=== PATIENT | female | born 1990 | race Caucasian/White ===

== ENCOUNTER 2018-12-07 06:49 | Inpatient (IN) | payer BC, MEDICAID ==
[2018-12-07] MEDS ORDERED: Misoprostol 100 MCG Tab VAG ONE (07:09)
[2018-12-07] MEDS ORDERED: Calcium Carbonate 500 MG Tab.Chew PO PRN (07:09)
--- NOTE | 2018-12-07 08:22 | PCM.PNLD ---
Labor Progress Note - VS & Meds Active Medications: Current Medications Calcium Carbonate/Glycine (Tums) 1,000 mg PO Q2H PRN PRN Reason: Indigestion Last Admin: 12/07/18 08:04 Dose: 1,000 mg Sodium Chloride (Saline Flush) 10 ml FLUSH ASDIRECTED PRN PRN Reason: Keep Vein Open Discontinued Medications Misoprostol (Cytotec) 25 mcg VAG ONETIME ONE Stop: 12/07/18 07:10 Last Admin: 12/07/18 08:11 Dose: 25 mcg - Uterine Contractions Uterine Resting Tone: Soft - Monitoring Monitor Mode: External Ultrasound Heart Rate (FHR) Variability: Moderate (6-25 bmp) Accelerations: Present, 15x15 Decelerations: None Strip Review: Category I - Vaginal Exam Station: -2 Cervical Position: Posterior - Labor Progress (Free Text) Labor Progress: Love is a 28 yo F at 39 w 2 d who was admitted today for induction of labor. She has had a routine and reports feeling well today. She is feeling some contractions this morning. Baby is moving and she has not had any vaginal bleeding or leakage of fluids. We will start her on Cytotec 25mg q 4 hours this AM. If she progresses we will start pitocin per protocol. Epidural/pain control per patient preference.
[2018-12-07] MEDS ORDERED: Misoprostol 25 MCG (1/4 of 100 MCG) Tab VAG ONE (12:14)
--- NOTE | 2018-12-07 12:57 | PCM.DEL ---
L & D Note - General Info Date of Service: 12/07/18 - Delivery Note Labor: Augmented by Oxytocin - General Info Date of Service: 12/07/18 Functional Status: Reports: Pain Controlled (Patient is doing well. She is starting to feel contractions that are more forceful. ) - Patient Data Vitals - Most Recent: Last Vital Signs Temp 98 F 12/07/18 07:20 Pulse 85 12/07/18 10:20 Resp 18 12/07/18 07:20 BP 117/79 12/07/18 07:20 Pulse Ox 100 12/07/18 07:30 Weight - Most Recent: 147 lb Med Orders - Current: Current Medications Calcium Carbonate/Glycine (Tums) 1,000 mg PO Q2H PRN PRN Reason: Indigestion Last Admin: 12/07/18 08:04 Dose: 1,000 mg Measles/Mumps/Rubella Vaccine Live (M-M-R Ii Vaccine) 0.5 ml SUBCUT .ONCE ONE Stop: 12/09/18 10:01 Sodium Chloride (Saline Flush) 10 ml FLUSH ASDIRECTED PRN PRN Reason: Keep Vein Open Discontinued Medications Misoprostol (Cytotec) 25 mcg VAG ONETIME ONE Stop: 12/07/18 07:10 Last Admin: 12/07/18 08:11 Dose: 25 mcg Misoprostol (Cytotec) 25 mcg VAG ONETIME ONE Stop: 12/07/18 12:15 - Problem List & Annotations (1) Elective induction of labor planned SNOMED Code(s): 024929147 Code(s): RZB1431 - Status: Acute Current Visit: Yes - Problem List Review Problem List Initiated/Reviewed/Updated: Yes - My Orders Last 24 Hours: My Active Orders 12/07/18 07:09 Patient Status [ADT] Routine Communication Order [RC] ASDIRECTED Communication Order [RC] ASDIRECTED Communication Order [RC] ASDIRECTED Communication Order [RC] ASDIRECTED Communication Order [RC] ASDIRECTED Non Stress Test [RC] Click to Edit Notify Provider [RC] PRN Notify Provider [RC] PRN Notify Provider [RC] STAT Vital Signs [RC] PER UNIT ROUTINE Calcium Carbonate [Tums] 1,000 mg PO Q2H PRN Sodium Chloride 0.9% [Saline Flush] 10 ml FLUSH ASDIRECTED PRN Electronic Heart Tones Ext w TOCO [WOMSER] Per Unit Routine Peripheral IV Insertion Adult [OM.PC] Urgent Saline Lock Insert [OM.PC] Routine Resuscitation Status Routine 12/07/18 07:11 Notify Provider Vital Signs [RC] PRN 12/07/18 07:14 Communication Order [RC] ASDIRECTED 12/07/18 11:06 Vaccines to be Administered [RC] PER UNIT ROUTINE 12/09/18 10:00 Measles, Mumps & Rubella [M-M-R II Vaccine] 0.5 ml SUBCUT .ONCE ONE - Assessment Assessment:: Induction of labor - Plan Plan:: Patient has made good cervical change. We will start her on pitocin per protocol. She may have epidural if desired.
[2018-12-07] MEDS: Sodium Chloride 0.9% 10 ML Syringe FLUSH PRN ×2 (13:25→23:30)
[2018-12-07] MEDS: Lactated Ringers 1,000 ML IV SCH ×2 (13:29→18:37)
[2018-12-07] MEDS ORDERED: LIDOCAINE 1.5% ONE (17:20)
[2018-12-07] MEDS ORDERED: Ropivacaine 200 ML EPIDUR ONE (17:20)
--- NOTE | 2018-12-07 17:37 | PCM.PNLD ---
Labor Progress Note - VS & Meds Vital Signs: Last Vital Signs Temp 98 F 12/07/18 14:20 Pulse 80 12/07/18 15:23 Resp 18 12/07/18 07:20 BP 103/61 12/07/18 14:20 Pulse Ox 100 12/07/18 07:30 Active Medications: Current Medications Calcium Carbonate/Glycine (Tums) 1,000 mg PO Q2H PRN PRN Reason: Indigestion Last Admin: 12/07/18 08:04 Dose: 1,000 mg Oxytocin/Sodium Chloride (Pitocin In Ns 20 Units/1,000 Ml) 20 unit in 1,000 mls @ 6 mls/hr IV TITRATE JEWELL; Protocol Last Titration: 12/07/18 15:15 Dose: 6 munits/min, 18 mls/hr Lactated Ringer's (Ringers, Lactated) 1,000 mls @ 125 mls/hr IV ASDIRECTED JEWELL Last Admin: 12/07/18 13:29 Dose: 125 mls/hr Measles/Mumps/Rubella Vaccine Live (M-M-R Ii Vaccine) 0.5 ml SUBCUT .ONCE ONE Stop: 12/09/18 10:01 Sodium Chloride (Saline Flush) 10 ml FLUSH ASDIRECTED PRN PRN Reason: Keep Vein Open Last Admin: 12/07/18 13:25 Dose: 10 ml Discontinued Medications Misoprostol (Cytotec) 25 mcg VAG ONETIME ONE Stop: 12/07/18 07:10 Last Admin: 12/07/18 08:11 Dose: 25 mcg Misoprostol (Cytotec) 25 mcg VAG ONETIME ONE Stop: 12/07/18 12:15 Last Admin: 12/07/18 12:58 Dose: Not Given - Uterine Contractions Uterine Monitoring Mode: External [place] Contraction Frequency (min): 2-5 Contraction Duration (sec): 60-90 Contraction Intensity: Mild to Moderate Uterine Resting Tone: Soft - Monitoring Monitor Mode: External Ultrasound Heart Rate (FHR) Variability: Moderate (6-25 bmp) Accelerations: Present, 15x15 Decelerations: None Strip Review: Category I - Vaginal Exam Dilation (cm): 1-2 Effacement (Percent): 80 Station: -2 Cervical Position: Midposition Sterile Vaginal Exam Performed By: Shi [place]eland Vaginal Exam Comment: examined by Dr. Nargis Spicer - Labor Progress (Free Text) Labor Progress: Successful AROM with return of clear fluid. Patient recieved epidural with no complications and has excellent pain control. Will continue pitocin per protocol. Expecting normal spontaneous vaginal delivery. Category I tracing.
[2018-12-07] MEDS ORDERED: Ondansetron 4 MG/2 ML SDV IVPUSH PRN (19:43)
[2018-12-07] MEDS ORDERED: Promethazine 6.25 MG in Sodium Chloride 0.9% 50 ML IV PRN (19:43)
[2018-12-07] MEDS ORDERED: ePHEDrine 50 MG/ML SDV IVPUSH PRN (19:43)
[2018-12-07] MEDS ORDERED: Lactated Ringers 500 ML IV SCH (19:45)
--- NOTE | 2018-12-07 22:10 | PCM.DEL ---
L & D Note - General Info Date of Service: 12/07/18 - Delivery Note Labor: Spontaneous, Augmented by Oxytocin Cervical Ripening Method: Prostaglandin E2 Delivery Outcome: Livebirth Delivery Method: Spontaneous Vaginal Delivery-Single Infant Delivery Mode: Spontaneous Presentation: Left Occiput Anterior (EDER) Nuchal Cord: Present Anesthesia Type: Epidural Amniotic Fluid Description: Clear Episiotomy Type: None Laceration: None Placenta: Intact, Spontaneous Cord: 3 Vessels Resuscitation Needed: No [place]: Suctioned, Bulb Syringe (Spontaneous delivery of a healthy baby boy weighing in 7lbs and 2.4ounces by spontaenous vaginal delivery. No lacerations and estimated blood loss at 50cc. ) - General Info Date of Service: 12/07/18 - Patient Data Vitals - Most Recent: Last Vital Signs Temp 97.4 F 12/07/18 17:00 Pulse 97 12/07/18 20:30 Resp 18 12/07/18 20:30 BP 107/73 12/07/18 20:30 Pulse Ox 100 12/07/18 20:30 Weight - Most Recent: 147 lb I&O - Last 24 Hours: Intake & Output 12/07/18 12/07/18 12/07/18 06:59 14:59 22:59 Intake Total 1500 Output Total 800 Balance 700 Med Orders - Current: Current Medications Calcium Carbonate/Glycine (Tums) 1,000 mg PO Q2H PRN PRN Reason: Indigestion Last Admin: 12/07/18 08:04 Dose: 1,000 mg Ephedrine Sulfate (Ephedrine Sulfate) 5 mg IVPUSH ASDIRECTED PRN PRN Reason: Hypotension Oxytocin/Sodium Chloride (Pitocin In Ns 20 Units/1,000 Ml) 20 unit in 1,000 mls @ 6 mls/hr IV TITRATE JEWELL; Protocol Last Titration: 12/07/18 17:50 Dose: 6 munits/min, 18 mls/hr Lactated Ringer's (Ringers, Lactated) 1,000 mls @ 125 mls/hr IV ASDIRECTED JEWELL Last Admin: 12/07/18 18:37 Dose: 125 mls/hr Lactated Ringer's (Ringers, Lactated) 1,000 mls @ 999 mls/hr IV BOLUS JEWELL Promethazine HCl 6.25 mg/ (Sodium Chloride) 50.25 mls @ 200 mls/hr IV Q4H PRN PRN Reason: Nausea/Vomiting Measles/Mumps/Rubella Vaccine Live (M-M-R Ii Vaccine) 0.5 ml SUBCUT .ONCE ONE Stop: 12/09/18 10:01 Ondansetron HCl (Zofran) 4 mg IVPUSH Q6H PRN PRN Reason: Nausea/Vomiting Sodium Chloride (Saline Flush) 10 ml FLUSH ASDIRECTED PRN PRN Reason: Keep Vein Open Last Admin: 12/07/18 13:25 Dose: 10 ml Discontinued Medications Misoprostol (Cytotec) 25 mcg VAG ONETIME ONE Stop: 12/07/18 07:10 Last Admin: 12/07/18 08:11 Dose: 25 mcg Misoprostol (Cytotec) 25 mcg VAG ONETIME ONE Stop: 12/07/18 12:15 Last Admin: 12/07/18 12:58 Dose: Not Given - Problem List & Annotations (1) Vaginal delivery SNOMED Code(s): 477246281 Code(s): O80 - ENCOUNTER FOR FULL-TERM UNCOMPLICATED DELIVERY Status: Acute Current Visit: Yes (2) Elective induction of labor planned SNOMED Code(s): 821724772 Code(s): JGO4237 - Status: Acute Current Visit: Yes (3) Vaginal delivery SNOMED Code(s): 395283428 Code(s): O80 - ENCOUNTER FOR FULL-TERM UNCOMPLICATED DELIVERY Status: Acute Current Visit: Yes (4) Vaginal delivery SNOMED Code(s): 108261905 Code(s): O80 - ENCOUNTER FOR FULL-TERM UNCOMPLICATED DELIVERY Status: Acute Current Visit: Yes - Problem List Review Problem List Initiated/Reviewed/Updated: Yes - My Orders Last 24 Hours: My Active Orders 12/07/18 07:09 Communication Order [RC] ASDIRECTED Non Stress Test [RC] Click to Edit Notify Provider [RC] PRN Notify Provider [RC] PRN Notify Provider [RC] STAT Vital Signs [RC] PER UNIT ROUTINE Calcium Carbonate [Tums] 1,000 mg PO Q2H PRN Sodium Chloride 0.9% [Saline Flush] 10 ml FLUSH ASDIRECTED PRN Electronic Heart Tones Ext w TOCO [WOMSER] Per Unit Routine Peripheral IV Insertion Adult [OM.PC] Urgent Saline Lock Insert [OM.PC] Routine Resuscitation Status Routine 12/07/18 07:11 Notify Provider Vital Signs [RC] PRN 12/07/18 11:06 Vaccines to be Administered [RC] PER UNIT ROUTINE 12/07/18 13:00 Lactated Ringers [Ringers, Lactated] 1,000 ml IV ASDIRECTED Oxytocin/Normal Saline [Pitocin in NS 20 Units/1,000 ML] 20 unit in 1,000 ml IV TITRATE 12/07/18 17:30 Admission Status [Patient Status] [ADT] Routine 12/09/18 10:00 Measles, Mumps & Rubella [M-M-R II Vaccine] 0.5 ml SUBCUT .ONCE ONE - Assessment Assessment:: Normal spontaneous vaginal delivery - Plan Plan:: Routine post cares. Patient plans to breast feed. Pain well controlled.
[2018-12-07] MEDS ORDERED: Acetaminophen/Codeine 300-30 MG Tab PO PRN (22:12)
[2018-12-07] MEDS: Ibuprofen 800 MG Tab PO SCH (22:41)
[2018-12-08] MEDS: Ibuprofen 800 MG Tab PO SCH ×3 (07:00→22:57)
--- NOTE | 2018-12-08 07:56 | PCM.PNPP ---
<Nargis Spicer - Last Filed: 12/08/18 07:49> - General Info Date of Service: 12/08/18 Subjective Update: Patient is doing very well. She has excellent pain control and no vaginal bleeding. She has been up and out of bed and urinating without issue. She does have some concern about breast feeding. Functional Status: Reports: Pain Controlled Pain Score: 1 - Review of Systems General: Reports: No Symptoms HEENT: Reports: No Symptoms Pulmonary: Reports: No Symptoms Gastrointestinal: Reports: No Symptoms Genitourinary: Reports: No Symptoms Musculoskeletal: Reports: No Symptoms Skin: Reports: No Symptoms Neurological: Reports: No Symptoms Psychiatric: Reports: No Symptoms - Patient Data Vital Signs - Most Recent: Last Vital Signs Temp 37.0 C 12/08/18 00:00 Pulse 100 12/08/18 01:30 Resp 18 12/08/18 01:30 BP 107/73 12/08/18 01:30 Pulse Ox 100 12/07/18 21:00 Weight - Most Recent: 147 lb I&O - Last 24 Hours: Intake & Output 12/07/18 12/08/18 12/08/18 22:59 06:59 14:59 Intake Total 3146 Output Total 1300 650 Balance 1846 -650 Lab Results - Last 24 Hours: Laboratory Results - last 24 hr 12/08/18 Range/Units 06:55 Hgb 10.1 L (11.5-15.5) g/dL Hct 30.3 (30.0-51.3) % Med Orders - Current: Current Medications Acetaminophen/Codeine Phosphate (Tylenol With Codeine No.3 300mg/30mg) 1 tab PO Q4H PRN PRN Reason: Pain (moderate 4-6) Last Admin: 12/08/18 05:33 Dose: 1 tab Calcium Carbonate/Glycine (Tums) 1,000 mg PO Q2H PRN PRN Reason: Indigestion Last Admin: 12/07/18 08:04 Dose: 1,000 mg Ibuprofen (Motrin) 800 mg PO Q8H JEWELL Last Admin: 12/08/18 07:00 Dose: 800 mg Measles/Mumps/Rubella Vaccine Live (M-M-R Ii Vaccine) 0.5 ml SUBCUT .ONCE ONE Stop: 12/09/18 10:01 Multivit/Folic Acid/Iron (-U) 1 each PO DAILY JEWELL Sodium Chloride (Saline Flush) 10 ml FLUSH ASDIRECTED PRN PRN Reason: Keep Vein Open Last Admin: 12/07/18 23:30 Dose: 10 ml Discontinued Medications Ephedrine Sulfate (Ephedrine Sulfate) 5 mg IVPUSH ASDIRECTED PRN PRN Reason: Hypotension Oxytocin/Sodium Chloride (Pitocin In Ns 20 Units/1,000 Ml) 20 unit in 1,000 mls @ 6 mls/hr IV TITRATE JEWELL; Protocol Last Titration: 12/07/18 17:50 Dose: 6 munits/min, 18 mls/hr Lactated Ringer's (Ringers, Lactated) 1,000 mls @ 125 mls/hr IV ASDIRECTED JEWELL Last Admin: 12/07/18 18:37 Dose: 125 mls/hr Lactated Ringer's (Ringers, Lactated) 1,000 mls @ 999 mls/hr IV BOLUS JEWELL Promethazine HCl 6.25 mg/ (Sodium Chloride) 50.25 mls @ 200 mls/hr IV Q4H PRN PRN Reason: Nausea/Vomiting Misoprostol (Cytotec) 25 mcg VAG ONETIME ONE Stop: 12/07/18 07:10 Last Admin: 12/07/18 08:11 Dose: 25 mcg Misoprostol (Cytotec) 25 mcg VAG ONETIME ONE Stop: 12/07/18 12:15 Last Admin: 12/07/18 12:58 Dose: Not Given Ondansetron HCl (Zofran) 4 mg IVPUSH Q6H PRN PRN Reason: Nausea/Vomiting - Infant Interaction Support Person: - Recovery Exam Fundal Tone: Firm Fundal Level: At Umbilicus Fundal Placement: Midline Lochia Amount: Moderate Lochia Color: Rubra/Red Perineum Description: Intact, Minimal Bruising/Swelling Episiotomy/Laceration: None Bladder Status: Voiding - Problem List & Annotations (1) care and examination SNOMED Code(s): 441599239, 484857458 Code(s): Z39.2 - ENCOUNTER FOR ROUTINE FOLLOW-UP Status: Acute (2) care following vaginal delivery SNOMED Code(s): 959726795, 662611723 Code(s): Z39.2 - ENCOUNTER FOR ROUTINE FOLLOW-UP Status: Acute (3) care following vaginal delivery SNOMED Code(s): 927850990, 906749957 Code(s): Z39.2 - ENCOUNTER FOR ROUTINE FOLLOW-UP Status: Acute - Assessment Assessment:: Normal spontaneous vaginal delivery Post Day #1 - Plan Plan:: Continue routine post cares. Patient encouraged to continue and work on latching. Her hemoglobin is within normal limits. All questions were answered. Plan for discharge tomorrow. <Ayad Ramos - Last Filed: 12/10/18 12:00> - Patient Data Vital Signs - Most Recent: Last Vital Signs Temp 98.5 F 12/08/18 16:00 Pulse 94 12/08/18 16:00 Resp 17 12/08/18 16:00 BP 96/64 12/08/18 16:00 Pulse Ox 99 12/08/18 16:00 Med Orders - Current: Current Medications Acetaminophen/Codeine Phosphate (Tylenol With Codeine No.3 300mg/30mg) 1 tab PO Q4H PRN PRN Reason: Pain (moderate 4-6) Last Admin: 12/08/18 05:33 Dose: 1 tab Calcium Carbonate/Glycine (Tums) 1,000 mg PO Q2H PRN PRN Reason: Indigestion Last Admin: 12/07/18 08:04 Dose: 1,000 mg Docusate Sodium (Colace) 100 mg PO DAILY PRN PRN Reason: Constipation Last Admin: 12/08/18 09:29 Dose: 100 mg Ibuprofen (Motrin) 800 mg PO Q8H JEWELL Last Admin: 12/09/18 06:15 Dose: 800 mg Measles/Mumps/Rubella Vaccine Live (M-M-R Ii Vaccine) 0.5 ml SUBCUT .ONCE ONE Stop: 12/09/18 10:01 Multivit/Folic Acid/Iron (-U) 1 each PO DAILY JEWELL Last Admin: 12/08/18 09:03 Dose: 1 each Sodium Chloride (Saline Flush) 10 ml FLUSH ASDIRECTED PRN PRN Reason: Keep Vein Open Last Admin: 12/07/18 23:30 Dose: 10 ml Discontinued Medications Ephedrine Sulfate (Ephedrine Sulfate) 5 mg IVPUSH ASDIRECTED PRN PRN Reason: Hypotension Oxytocin/Sodium Chloride (Pitocin In Ns 20 Units/1,000 Ml) 20 unit in 1,000 mls @ 6 mls/hr IV TITRATE JEWELL; Protocol Last Titration: 12/07/18 17:50 Dose: 6 munits/min, 18 mls/hr Lactated Ringer's (Ringers, Lactated) 1,000 mls @ 125 mls/hr IV ASDIRECTED JEWELL Last Admin: 12/07/18 18:37 Dose: 125 mls/hr Lactated Ringer's (Ringers, Lactated) 1,000 mls @ 999 mls/hr IV BOLUS JEWELL Promethazine HCl 6.25 mg/ (Sodium Chloride) 50.25 mls @ 200 mls/hr IV Q4H PRN PRN Reason: Nausea/Vomiting Misoprostol (Cytotec) 25 mcg VAG ONETIME ONE Stop: 12/07/18 07:10 Last Admin: 12/07/18 08:11 Dose: 25 mcg Misoprostol (Cytotec) 25 mcg VAG ONETIME ONE Stop: 12/07/18 12:15 Last Admin: 12/07/18 12:58 Dose: Not Given Ondansetron HCl (Zofran) 4 mg IVPUSH Q6H PRN PRN Reason: Nausea/Vomiting - Problem List & Annotations (1) Vaginal delivery SNOMED Code(s): 397304150 Code(s): O80 - ENCOUNTER FOR FULL-TERM UNCOMPLICATED DELIVERY Status: Acute (2) Elective induction of labor planned SNOMED Code(s): 406813312 Code(s): TZD6111 - Status: Acute (3) Vaginal delivery SNOMED Code(s): 052471984 Code(s): O80 - ENCOUNTER FOR FULL-TERM UNCOMPLICATED DELIVERY Status: Acute (4) Vaginal delivery SNOMED Code(s): 769935343 Code(s): O80 - ENCOUNTER FOR FULL-TERM UNCOMPLICATED DELIVERY Status: Acute - Problem List Review Problem List Initiated/Reviewed/Updated: Yes - My Orders Last 24 Hours: My Active Orders 12/08/18 09:00 Vit/FA/Fe Fumarate [-U] 1 each PO DAILY 12/08/18 09:10 Docusate Sodium [Colace] 100 mg PO DAILY PRN 12/09/18 07:52 Ready for Discharge [RC] PER UNIT ROUTINE 12/09/18 10:00 Measles, Mumps & Rubella [M-M-R II Vaccine] 0.5 ml SUBCUT .ONCE ONE - Plan Plan:: I have seen this patient with the resident and agree with the plan
[2018-12-08] MEDS: Prenatal Multivitamin with Calcium/Folic Acid/Fe Fumarate Cap PO SCH (09:03)
[2018-12-08] MEDS ORDERED: Docusate Sodium 100 MG Cap PO PRN (09:10)
[2018-12-09] MEDS: Ibuprofen 800 MG Tab PO SCH (06:15)
--- NOTE | 2018-12-09 07:50 | PCM.PNPP ---
- General Info Date of Service: 12/09/18 Admission Dx/Problem (Free Text): Patient without concerns. She says her pain is under control without narcotics. She has minimal vaginal bleeding and no leg swelling. - General Info Date of Service: 12/09/18 - Patient Data Vital Signs - Most Recent: Last Vital Signs Temp 98.5 F 12/08/18 16:00 Pulse 94 12/08/18 16:00 Resp 17 12/08/18 16:00 BP 96/64 12/08/18 16:00 Pulse Ox 99 12/08/18 16:00 Weight - Most Recent: 147 lb Med Orders - Current: Current Medications Acetaminophen/Codeine Phosphate (Tylenol With Codeine No.3 300mg/30mg) 1 tab PO Q4H PRN PRN Reason: Pain (moderate 4-6) Last Admin: 12/08/18 05:33 Dose: 1 tab Calcium Carbonate/Glycine (Tums) 1,000 mg PO Q2H PRN PRN Reason: Indigestion Last Admin: 12/07/18 08:04 Dose: 1,000 mg Docusate Sodium (Colace) 100 mg PO DAILY PRN PRN Reason: Constipation Last Admin: 12/08/18 09:29 Dose: 100 mg Ibuprofen (Motrin) 800 mg PO Q8H JEWELL Last Admin: 12/09/18 06:15 Dose: 800 mg Measles/Mumps/Rubella Vaccine Live (M-M-R Ii Vaccine) 0.5 ml SUBCUT .ONCE ONE Stop: 12/09/18 10:01 Multivit/Folic Acid/Iron (-U) 1 each PO DAILY JEWELL Last Admin: 12/08/18 09:03 Dose: 1 each Sodium Chloride (Saline Flush) 10 ml FLUSH ASDIRECTED PRN PRN Reason: Keep Vein Open Last Admin: 12/07/18 23:30 Dose: 10 ml Discontinued Medications Ephedrine Sulfate (Ephedrine Sulfate) 5 mg IVPUSH ASDIRECTED PRN PRN Reason: Hypotension Oxytocin/Sodium Chloride (Pitocin In Ns 20 Units/1,000 Ml) 20 unit in 1,000 mls @ 6 mls/hr IV TITRATE JEWELL; Protocol Last Titration: 12/07/18 17:50 Dose: 6 munits/min, 18 mls/hr Lactated Ringer's (Ringers, Lactated) 1,000 mls @ 125 mls/hr IV ASDIRECTED JEWELL Last Admin: 12/07/18 18:37 Dose: 125 mls/hr Lactated Ringer's (Ringers, Lactated) 1,000 mls @ 999 mls/hr IV BOLUS JEWELL Promethazine HCl 6.25 mg/ (Sodium Chloride) 50.25 mls @ 200 mls/hr IV Q4H PRN PRN Reason: Nausea/Vomiting Misoprostol (Cytotec) 25 mcg VAG ONETIME ONE Stop: 12/07/18 07:10 Last Admin: 12/07/18 08:11 Dose: 25 mcg Misoprostol (Cytotec) 25 mcg VAG ONETIME ONE Stop: 12/07/18 12:15 Last Admin: 12/07/18 12:58 Dose: Not Given Ondansetron HCl (Zofran) 4 mg IVPUSH Q6H PRN PRN Reason: Nausea/Vomiting - Interaction Disposition, : [place] in Room with Family Support Person: - Recovery Exam Fundal Tone: Firm Fundal Level: At Umbilicus Fundal Placement: Midline Lochia Amount: Small Lochia Color: Rubra/Red Perineum Description: Intact, Minimal Bruising/Swelling Episiotomy/Laceration: None Bladder Status: Voiding Urinary Elimination: Voided - Exam General: Alert, Oriented, Cooperative GI/Abdominal Exam: Other (Abdomen is soft and uterus is gravid) Extremities: Normal Inspection, No Pedal Edema - Problem List & Annotations (1) Vaginal delivery SNOMED Code(s): 806643216 Code(s): O80 - ENCOUNTER FOR FULL-TERM UNCOMPLICATED DELIVERY Status: Acute Current Visit: Yes (2) Elective induction of labor planned SNOMED Code(s): 119727669 Code(s): ZBD2932 - Status: Acute Current Visit: Yes (3) Vaginal delivery SNOMED Code(s): 178827105 Code(s): O80 - ENCOUNTER FOR FULL-TERM UNCOMPLICATED DELIVERY Status: Acute Current Visit: Yes (4) Vaginal delivery SNOMED Code(s): 517959316 Code(s): O80 - ENCOUNTER FOR FULL-TERM UNCOMPLICATED DELIVERY Status: Acute Current Visit: Yes - Problem List Review Problem List Initiated/Reviewed/Updated: Yes - My Orders Last 24 Hours: My Active Orders 12/08/18 09:00 Vit/FA/Fe Fumarate [-U] 1 each PO DAILY 12/08/18 09:10 Docusate Sodium [Colace] 100 mg PO DAILY PRN 12/09/18 10:00 Measles, Mumps & Rubella [M-M-R II Vaccine] 0.5 ml SUBCUT .ONCE ONE - Assessment Assessment:: Discharge to home. - Plan Plan:: Discharge to home.
--- NOTE | 2018-12-09 07:57 | PCM.DCSUM1 ---
Discharge Summary - Hospital Course Free Text/Narrative:: Hospital course-after delivery patient did well she did have an epidural. She was weaned off that and her bleeding was low. Hemoglobin next is 10.1 vital signs stable afebrile. day 2 she had no complaints pain was under control with oral ibuprofen and was minimal. Brief History: This is a 28-year-old came in 39 weeks for induction. Cytotec and then pit reuse and she delivered a healthy with one nuchal cord. See delivery note. Diagnosis: Stroke: No - Discharge Data Discharge Date: 12/09/18 Discharge Disposition: Home, Self-Care 01 Condition: Good - Discharge Diagnosis/Problem(s) (1) Vaginal delivery SNOMED Code(s): 772902652 ICD Code: O80 - ENCOUNTER FOR FULL-TERM UNCOMPLICATED DELIVERY Status: Acute Current Visit: Yes (2) Elective induction of labor planned SNOMED Code(s): 460314378 ICD Code: OOV3693 - Status: Acute Current Visit: Yes (3) Vaginal delivery SNOMED Code(s): 869284562 ICD Code: O80 - ENCOUNTER FOR FULL-TERM UNCOMPLICATED DELIVERY Status: Acute Current Visit: Yes (4) Vaginal delivery SNOMED Code(s): 076392542 ICD Code: O80 - ENCOUNTER FOR FULL-TERM UNCOMPLICATED DELIVERY Status: Acute Current Visit: Yes - Patient Instructions Diet: Regular Diet as Tolerated Activity: As Tolerated Driving: May Drive Today Showering/Bathing: May Shower Notify Provider of: Increased Pain, Swelling and Redness, Nausea and/or Vomiting Other/Special Instructions: 1. Recheck in 6 weeks for care. 2. vitamin once a day. For pain [id number] ibuprofen. - Discharge Plan Home Medications: Home Meds Vit/FA/Fe Fumarate [-U] 1 each PO DAILY cap 12/09/18 [Rx] Patient Handouts: Depression, Baby Blues, Home Care Instructions for Mom, Vaginal Delivery, Care After, Care After Vaginal Delivery, Hand Washing - Discharge Summary/Plan Comment DC Time >30 min.: No - Patient Data Vitals - Most Recent: Last Vital Signs Temp 98.5 F 12/08/18 16:00 Pulse 94 12/08/18 16:00 Resp 17 12/08/18 16:00 BP 96/64 12/08/18 16:00 Pulse Ox 99 12/08/18 16:00 Weight - Most Recent: 147 lb Med Orders - Current: Current Medications Acetaminophen/Codeine Phosphate (Tylenol With Codeine No.3 300mg/30mg) 1 tab PO Q4H PRN PRN Reason: Pain (moderate 4-6) Last Admin: 12/08/18 05:33 Dose: 1 tab Calcium Carbonate/Glycine (Tums) 1,000 mg PO Q2H PRN PRN Reason: Indigestion Last Admin: 12/07/18 08:04 Dose: 1,000 mg Docusate Sodium (Colace) 100 mg PO DAILY PRN PRN Reason: Constipation Last Admin: 12/08/18 09:29 Dose: 100 mg Ibuprofen (Motrin) 800 mg PO Q8H JEWELL Last Admin: 12/09/18 06:15 Dose: 800 mg Measles/Mumps/Rubella Vaccine Live (M-M-R Ii Vaccine) 0.5 ml SUBCUT .ONCE ONE Stop: 12/09/18 10:01 Multivit/Folic Acid/Iron (-U) 1 each PO DAILY JEWELL Last Admin: 12/08/18 09:03 Dose: 1 each Sodium Chloride (Saline Flush) 10 ml FLUSH ASDIRECTED PRN PRN Reason: Keep Vein Open Last Admin: 12/07/18 23:30 Dose: 10 ml Discontinued Medications Ephedrine Sulfate (Ephedrine Sulfate) 5 mg IVPUSH ASDIRECTED PRN PRN Reason: Hypotension Oxytocin/Sodium Chloride (Pitocin In Ns 20 Units/1,000 Ml) 20 unit in 1,000 mls @ 6 mls/hr IV TITRATE JEWELL; Protocol Last Titration: 12/07/18 17:50 Dose: 6 munits/min, 18 mls/hr Lactated Ringer's (Ringers, Lactated) 1,000 mls @ 125 mls/hr IV ASDIRECTED JEWELL Last Admin: 12/07/18 18:37 Dose: 125 mls/hr Lactated Ringer's (Ringers, Lactated) 1,000 mls @ 999 mls/hr IV BOLUS JEWELL Promethazine HCl 6.25 mg/ (Sodium Chloride) 50.25 mls @ 200 mls/hr IV Q4H PRN PRN Reason: Nausea/Vomiting Misoprostol (Cytotec) 25 mcg VAG ONETIME ONE Stop: 12/07/18 07:10 Last Admin: 12/07/18 08:11 Dose: 25 mcg Misoprostol (Cytotec) 25 mcg VAG ONETIME ONE Stop: 12/07/18 12:15 Last Admin: 12/07/18 12:58 Dose: Not Given Ondansetron HCl (Zofran) 4 mg IVPUSH Q6H PRN PRN Reason: Nausea/Vomiting
[2018-12-09] MEDS: Prenatal Multivitamin with Calcium/Folic Acid/Fe Fumarate Cap PO SCH (08:19)
[2018-12-09 09:49] VITALS: BP 107/71
[2018-12-09] MEDS ORDERED: Measles, Mumps & Rubella Vaccine 0.5 ML SDV SUBCUT ONE (10:00)
== END 2018-12-09 08:50 | disposition home or self-care (01) | DRG 560 ==
LOC: FB.OB 06:49 → FB.OBCHECK 06:49 → FB.OB 06:50 → FB.OBCHECK 07:09 → OBSVTOIN 17:30
PROVIDERS: ADMIT Family Medicine; ATTEND Family Medicine
PROC: 10E0XZZ Delivery of Products of Conception, External Approach (ICD-10-PCS; principal; 2018-12-07)
PROC: 10907ZC Drainage of Amniotic Fluid, Therapeutic from Products of Conception, Via Natural or Artificial Opening (ICD-10-PCS; 2018-12-07)
PROC: 3E0P7VZ Introduction of Hormone into Female Reproductive, Via Natural or Artificial Opening (ICD-10-PCS; 2018-12-07)
PROC: 3E033VJ Introduction of Other Hormone into Peripheral Vein, Percutaneous Approach (ICD-10-PCS; 2018-12-07)
PROC: 3E0234Z Introduction of Serum, Toxoid and Vaccine into Muscle, Percutaneous Approach (ICD-10-PCS; 2018-12-09)
DX: O69.81X0 Labor and delivery complicated by cord around neck, without compression, not applicable or unspecified (principal); Z3A.39 39 weeks gestation of pregnancy; Z37.0 Single live birth; Z23 Encounter for immunization
CPT/HCPCS: 36415; 51701; 59409; 85014; 85018; 90471; 90707; A9270-GY; J2590; J2795; J7120

== ENCOUNTER 2019-12-13 07:21 | Day surgery (SDC) | payer BC ==
[~2019-12-13 07:21] MED LIST: Lactated Ringers 1,000 ML IV SCH; Sodium Chloride 0.9% 10 ML Syringe FLUSH PRN
[2019-12-13] MEDS ORDERED: Midazolam 1 MG/ML 2 ML SDV IV ONE (07:22)
[2019-12-13] MEDS ORDERED: Propofol 200 MG/20 ML SDV IV ONE (07:22)
--- NOTE | 2019-12-13 09:08 | PCM.OPNOTE ---
- General Post-Op/Procedure Note Date of Surgery/Procedure: 12/13/19 Operative Procedure(s): egd with bx Findings: gastritis esophagitis fundic gland polyp Pre Op Diagnosis: epigastric abd pain Post-Op Diagnosis: gastritis. esophagitis. fundic gland polyp Anesthesia Technique: MAC Primary Surgeon: Lambert Aquino Anesthesia Provider: Vannessa Walsh Pathology: stomach esophagus Complications: None Condition: Good Free Text/Narrative:: see dictation
[2019-12-13 09:26] VITALS: BP 111/79; PULSE 78
--- NOTE | 2019-12-13 14:53 | OR ---
DATE OF OPERATION: 12/13/2019 SURGEON: Lambert Aquino MD PROCEDURE PERFORMED: Esophagogastroduodenoscopy with cold forceps biopsy. PREOPERATIVE DIAGNOSIS: History of epigastric abdominal pain. 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 INDICATIONS FOR PROCEDURE: This is a 29-year-old white female who was referred with the above-mentioned complaints. She was offered and accepted an esophagogastroduodenoscopy. DESCRIPTION OF OPERATION: After an excellent IV sedation was administered, the bite block was inserted. Flexible endoscope was passed without difficulty down the patient's esophagus into the stomach. Stomach was insufflated. Scope passed through the pylorus, second portion of the duodenum, and then slowly withdrawn. The following findings were noted. Duodenum was unremarkable. Stomach demonstrated some diffuse gastritis. Random biopsies were taken in addition to fundic gland polyps were identified, these were biopsied and submitted in the same container. The GE junction and the distal 2 to 3 cm of the esophagus demonstrated some erythema. Biopsies were taken of this area as well. The remainder of the esophageal exam was unremarkable. Stomach was deflated, scope was removed. The patient tolerated the procedure well, was taken to recovery. Results will be sent to the patient by letter. /[id number] /[id number]
== END 2019-12-13 09:58 | disposition home or self-care (01) ==
LOC: FB.SDS 07:21
PROVIDERS: ATTEND Surgery
DX: K21.0 Gastro-esophageal reflux disease with esophagitis (principal); K29.50 Unspecified chronic gastritis without bleeding; K31.7 Polyp of stomach and duodenum; Z79.899 Other long term (current) drug therapy
CPT/HCPCS: 43239; 81025; 88305; 88313; 88342; J2250; J2704; J7120